=== PATIENT | male | born 1970 | race Caucasian/White ===

== ENCOUNTER 2025-08-15 07:24 | Day surgery (SDC) | payer BC ==
[2025-08-15] MEDS ORDERED: fentaNYL 100 MCG/2 ML SDV ONE (07:37)
[2025-08-15] MEDS ORDERED: Propofol 200 MG/20 ML SDV ONE ×2 (07:37→10:04)
[2025-08-15] MEDS: Lactated Ringers 1,000 ML IV SCH (07:38)
== END 2025-08-15 11:02 | disposition home or self-care (01) ==
LOC: VM.SDS 07:24
PROVIDERS: ATTEND Student in an Organized Health Care Education/Training Program
DX: Z12.11 Encounter for screening for malignant neoplasm of colon (principal); K21.9 Gastro-esophageal reflux disease without esophagitis; Z79.899 Other long term (current) drug therapy
CPT/HCPCS: 45378; J2704; J3010; J7120; 00812